=== PATIENT | female | born 1960 | race Caucasian/White ===

== ENCOUNTER 2025-05-05 09:37 | Inpatient (IN) | payer BC ==
[2025-05-05] MEDS ORDERED: Iopamidol 370 76% 100 ML VIAL ONE (10:06)
[2025-05-05 10:38] LABS: #Basophils 0.04 10x3/uL (0.0-0.2); #Eosinophils 0.08 10x3/uL (0.0-0.5); #Monocytes 0.51 10x3/uL (0.0-1.1); #Neutrophils 19.48 10x3/uL (1.5-8.4); %Basophils 0.2 % (0.0-2.0); %Eosinophils 0.4 % (0.0-6.0); %Lymphocytes 3.4 % (18.0-47.0); %Monocytes 2.4 % (0.0-10.0); %Neutrophils 92.4 % (40.0-75.0); Hematocrit 38.7 % (34.9-44.5); Hemoglobin 13.0 g/dL (12.0-15.5); Mean Corpuscular Hemoglobin 31.0 pg (27.0-33.0); Mean Corpuscular Volume 92.1 fL (81.6-98.3); Platelet Count 343 10x3/uL (150-450); Red Blood Cell (RBC) Count 4.20 10x6/uL (3.90-5.03); White Blood Cell (WBC) Count 21.07 10x3/uL (3.5-10.5)
[2025-05-05 10:57] LABS: ALT (SGPT) 17 U/L (Less than 34); AST (SGOT) 33 U/L (11-34); Albumin 2.6 g/dL (3.1-4.5); Alkaline Phosphatase 105 U/L (40-110); Anion Gap 14 mmol/L (10-20); BUN (Urea Nitrogen) 18 mg/dL (9.8-20.1); Bilirubin, Total 0.3 mg/dL (0.3-1.2); Calc. Creatinine Clearance 0 mL/min (70-130); Calcium 8.4 mg/dL (7.8-10.44); Carbon Dioxide 22 mmol/L (23-31); Chloride 94 mmol/L (98-107); Globulin 3.5 g/dL (2.4-3.5); Glucose 160 mg/dL (80-115); Lipase 7 U/L (8-78); Magnesium 1.7 mg/dL (1.6-2.6); Potassium 4.1 mmol/L (3.5-5.1); Sodium 126 mmol/L (136-145)
[2025-05-05] MEDS ORDERED: Ondansetron PF 4 MG/2 ML Vial ONE ×2 (11:18→13:23)
[2025-05-05 11:26] LABS: Critical Call Chem Troponin I SJOS.OD@1118; Troponin I 0.456 ng/mL (< 0.028)
[2025-05-05] MEDS ORDERED: Aspirin Chewable 81 MG TAB ONE (12:31)
[2025-05-05 13:03] LABS: Troponin I 0.460 ng/mL (< 0.028)
[2025-05-05] MEDS ORDERED: Benzonatate 100 MG CAP ONE (13:52)
[2025-05-05] MEDS ORDERED: Ondansetron PF 4 MG/2 ML Vial IVP PRN (14:33)
[2025-05-05] MEDS: Vancomycin 2.5 GM, Admixture Fee 1 EACH in Sodium Chloride 0.9% 500 ML IVPB SCH (15:30)
[2025-05-05 16:12] LABS: ALV-art Gradient 198.675 mmHg (0-20); Actual Bicarbonate (HCO3a) 21.8 mEq/L (22-28); Analyzer IN Cardio CS ER; Base Excess (BEa) -4.2 mEq/L (-2.0 to +3.0); CO2 Tension 42.9 mmHg (35.0-45.0); Calcium, Ionized (arterial) 1.13 mmol/L (1.12-1.30); Critical Notified By: clumpkins rt; Hematocrit-ABG 43 % (36.0-47.0); Hemoglobin (Hb) 14.5 g/dL (12.0-16.0); O2 Tension (PaO2), arterial 32.9 mmHg (> 80.0); Potassium - ABG Lab 4.09 mmol/L (3.70-5.30); Puncture Site Left Radial artery; pH, Arterial 7.323 (7.35-7.45)
[2025-05-05] MEDS: NOREPINEPHRINE 8 MG/250 ML-D5W 250 ML ONE (17:40)
[2025-05-05] MEDS: Fentanyl BOLUS 250 ML IVPB PRN (18:10)
[2025-05-05] MEDS ORDERED: DISCONTINUE PREVIOUS NARCOTIC PAIN MEDICATIONS AND BENZODIAZEPINES FS SCH (18:30)
[2025-05-05] MEDS ORDERED: Propofol BOLUS 1,000 MG/100 ML VIAL IV PRN (18:30)
[2025-05-05] MEDS ORDERED: FENTANYL 2,000MCG/100-0.9%NACL 100 ML IVPB SCH (18:30)
[2025-05-05 19:38] LABS: ALV-art Gradient 571.425 mmHg (0-20); Actual Bicarbonate (HCO3a) 17.9 mEq/L (22-28); Analyzer IN Cardio CS ICU; Base Excess (BEa) -7.9 mEq/L (-2.0 to +3.0); CO2 Tension 37.5 mmHg (35.0-45.0); Calcium, Ionized (arterial) 1.12 mmol/L (1.12-1.30); Critical Notified By: CP.LH1; Critical Notified Whom: RYAN, RN; Hematocrit-ABG 37 % (36.0-47.0); Hemoglobin (Hb) 12.6 g/dL (12.0-16.0); O2 Tension (PaO2), arterial 94.7 mmHg (> 80.0); Potassium - ABG Lab 4.22 mmol/L (3.70-5.30); Puncture Site Left Radial artery; RapidComm Collect By CP.LH1; pH, Arterial 7.297 (7.35-7.45)
[2025-05-05] MEDS: Enoxaparin 40 MG (0.4 mL) SYRINGE SC SCH (19:56)
[2025-05-05] MEDS: Topiramate 100 MG TAB PER TUBE SCH (19:57)
[2025-05-05 20:10] LABS: Troponin I 0.374 ng/mL (< 0.028)
[2025-05-05] MEDS ORDERED: AZELASTINE INH SCH (21:00)
[2025-05-05] MEDS ORDERED: FLUTICASONE INH SCH (21:00)
[2025-05-05] MEDS ORDERED: [UNRECOGNIZED DRUG - OTHER] INH SCH (21:00)
[2025-05-05] MEDS: VANCOMYCIN 1.25 GM/250 ML BAG 1.25 GM in Premix 1 BAG IVPB SCH (23:01)
[2025-05-06] MEDS: Pantoprazole 40 MG VIAL IVP SCH (08:53)
[2025-05-06 10:54] LABS: #Basophils 0.04 10x3/uL (0.0-0.2); #Eosinophils 0.60 10x3/uL (0.0-0.5); #Monocytes 0.55 10x3/uL (0.0-1.1); #Neutrophils 19.61 10x3/uL (1.5-8.4); %Basophils 0.2 % (0.0-2.0); %Eosinophils 2.7 % (0.0-6.0); %Lymphocytes 6.7 % (18.0-47.0); %Monocytes 2.5 % (0.0-10.0); %Neutrophils 87.3 % (40.0-75.0); Hematocrit 37.0 % (34.9-44.5); Hemoglobin 11.7 g/dL (12.0-15.5); Mean Corpuscular Hemoglobin 30.7 pg (27.0-33.0); Mean Corpuscular Volume 97.1 fL (81.6-98.3); Platelet Count 380 10x3/uL (150-450); Red Blood Cell (RBC) Count 3.81 10x6/uL (3.90-5.03); White Blood Cell (WBC) Count 22.44 10x3/uL (3.5-10.5)
[2025-05-06 11:02] LABS: Vancomycin, Random 36.4 ug/mL (See Comment)
[2025-05-06 11:05] LABS: ALT (SGPT) 13 U/L (Less than 34); AST (SGOT) 38 U/L (11-34); Albumin 2.4 g/dL (3.1-4.5); Alkaline Phosphatase 102 U/L (40-110); Anion Gap 11 mmol/L (10-20); BUN (Urea Nitrogen) 21 mg/dL (9.8-20.1); BUN/Creatinine Ratio 20.19; Bilirubin, Total 0.3 mg/dL (0.3-1.2); Calc. Creatinine Clearance 128 mL/min (70-130); Calcium 8.5 mg/dL (7.8-10.44); Carbon Dioxide 21 mmol/L (23-31); Chloride 99 mmol/L (98-107); Globulin 3.7 g/dL (2.4-3.5); Glucose 146 mg/dL (80-115); Potassium 4.2 mmol/L (3.5-5.1); Sodium 127 mmol/L (136-145)
[2025-05-06 11:21] LABS: ALV-art Gradient 581.600 mmHg (0-20); Actual Bicarbonate (HCO3a) 19.0 mEq/L (22-28); Analyzer IN Cardio CS ICU; Base Excess (BEa) -6.6 mEq/L (-2.0 to +3.0); CO2 Tension 38.0 mmHg (35.0-45.0); Calcium, Ionized (arterial) 1.16 mmol/L (1.12-1.30); Hematocrit-ABG 37 % (36.0-47.0); Hemoglobin (Hb) 12.6 g/dL (12.0-16.0); O2 Tension (PaO2), arterial 83.9 mmHg (> 80.0); Potassium - ABG Lab 4.07 mmol/L (3.70-5.30); Puncture Site Left Radial artery; RapidComm Collect By clumpkins rt; pH, Arterial 7.316 (7.35-7.45)
[2025-05-06] MEDS: NOREPINEPHRINE 8 MG/250 ML-D5W 250 ML IVPB SCH (21:22)
[2025-05-06] MEDS: Vancomycin HCl 750 MG in Sodium Chloride 0.9% 250 ML 250 ML IVPB SCH (23:12)
[2025-05-07 03:20] LABS: #Basophils 0.04 10x3/uL (0.0-0.2); #Eosinophils 1.49 10x3/uL (0.0-0.5); #Monocytes 0.44 10x3/uL (0.0-1.1); #Neutrophils 13.03 10x3/uL (1.5-8.4); %Basophils 0.2 % (0.0-2.0); %Eosinophils 9.1 % (0.0-6.0); %Lymphocytes 7.3 % (18.0-47.0); %Monocytes 2.7 % (0.0-10.0); %Neutrophils 80.1 % (40.0-75.0); Hematocrit 33.2 % (34.9-44.5); Hemoglobin 11.0 g/dL (12.0-15.5); Mean Corpuscular Hemoglobin 31.1 pg (27.0-33.0); Mean Corpuscular Volume 93.8 fL (81.6-98.3); Platelet Count 278 10x3/uL (150-450); Red Blood Cell (RBC) Count 3.54 10x6/uL (3.90-5.03); White Blood Cell (WBC) Count 16.29 10x3/uL (3.5-10.5)
[2025-05-07 03:46] LABS: Vancomycin, Random 24.3 ug/mL (See Comment)
[2025-05-07 03:47] LABS: Anion Gap 11 mmol/L (10-20); BUN (Urea Nitrogen) 25 mg/dL (9.8-20.1); Calc. Creatinine Clearance 120 mL/min (70-130); Calcium 8.6 mg/dL (7.8-10.44); Carbon Dioxide 19 mmol/L (23-31); Chloride 103 mmol/L (98-107); Glucose 137 mg/dL (80-115); Potassium 3.9 mmol/L (3.5-5.1); Sodium 129 mmol/L (136-145)
[2025-05-07] MEDS: FLU (Fluad Triv) 25-26 (65UP)PF 45 MCG/0.5 ML Syringe IM ONE (07:51)
[2025-05-07] MEDS: Furosemide 40 MG (4 mL) VIAL SLOW IVP SCH (15:01)
[2025-05-07] MEDS: VANCOMYCIN 1.25 GM/250 ML BAG 1.25 GM in Premix 1 BAG IVPB SCH (19:49)
[2025-05-08 03:41] LABS: ALV-art Gradient 266.925 mmHg (0-20); Actual Bicarbonate (HCO3a) 20.5 mEq/L (22-28); Analyzer IN Cardio CS ICU; Base Excess (BEa) -6.6 mEq/L (-2.0 to +3.0); CO2 Tension 47.3 mmHg (35.0-45.0); Calcium, Ionized (arterial) 1.22 mmol/L (1.12-1.30); Hematocrit-ABG 33 % (36.0-47.0); Hemoglobin (Hb) 11.3 g/dL (12.0-16.0); O2 Tension (PaO2), arterial 66.1 mmHg (> 80.0); Potassium - ABG Lab 3.37 mmol/L (3.70-5.30); Puncture Site Left Radial artery; pH, Arterial 7.254 (7.35-7.45)
[2025-05-08 04:23] LABS: Anion Gap 11 mmol/L (10-20); BUN (Urea Nitrogen) 29 mg/dL (9.8-20.1); Calc. Creatinine Clearance 106 mL/min (70-130); Calcium 8.8 mg/dL (7.8-10.44); Carbon Dioxide 21 mmol/L (23-31); Chloride 104 mmol/L (98-107); Glucose 143 mg/dL (80-115); Potassium 3.4 mmol/L (3.5-5.1); Sodium 133 mmol/L (136-145)
[2025-05-08 04:24] LABS: Vancomycin, Random 22.3 ug/mL (See Comment)
[2025-05-08 04:25] LABS: #Basophils 0.03 10x3/uL (0.0-0.2); #Eosinophils 1.49 10x3/uL (0.0-0.5); #Monocytes 0.34 10x3/uL (0.0-1.1); #Neutrophils 10.57 10x3/uL (1.5-8.4); %Basophils 0.2 % (0.0-2.0); %Eosinophils 10.6 % (0.0-6.0); %Lymphocytes 10.3 % (18.0-47.0); %Monocytes 2.4 % (0.0-10.0); %Neutrophils 75.4 % (40.0-75.0); Hematocrit 31.1 % (34.9-44.5); Hemoglobin 10.1 g/dL (12.0-15.5); Mean Corpuscular Hemoglobin 31.3 pg (27.0-33.0); Mean Corpuscular Volume 96.3 fL (81.6-98.3); Platelet Count 285 10x3/uL (150-450); Red Blood Cell (RBC) Count 3.23 10x6/uL (3.90-5.03); White Blood Cell (WBC) Count 14.04 10x3/uL (3.5-10.5)
[2025-05-08] MEDS ORDERED: Electrolyte Replacement Protocol 1 EACH FS PRN (15:30)
[2025-05-08] MEDS: Nystatin Powder 15 GM BOT TOP PRN (15:51)
[2025-05-08] MEDS: Magnesium 2 GM/50 ML(in water) 2 GM in Premix 1 BAG IVPB SCH (16:26)
[2025-05-08] MEDS: Potassium Chloride 20 MEQ in Premix 1 BAG IVPB SCH (16:28)
[2025-05-08] MEDS: Mupirocin 1 GM TUBE TP SCH (20:30)
[2025-05-09 03:55] LABS: ALV-art Gradient 219.175 mmHg (0-20); Actual Bicarbonate (HCO3a) 20.4 mEq/L (22-28); Analyzer IN Cardio CS ICU; Base Excess (BEa) -6.7 mEq/L (-2.0 to +3.0); CO2 Tension 47.7 mmHg (35.0-45.0); Calcium, Ionized (arterial) 1.25 mmol/L (1.12-1.30); Hematocrit-ABG 33 % (36.0-47.0); Hemoglobin (Hb) 11.1 g/dL (12.0-16.0); O2 Tension (PaO2), arterial 77.7 mmHg (> 80.0); Potassium - ABG Lab 3.93 mmol/L (3.70-5.30); Puncture Site Left Radial artery; pH, Arterial 7.249 (7.35-7.45)
[2025-05-09 05:44] LABS: #Basophils 0.03 10x3/uL (0.0-0.2); #Eosinophils 1.34 10x3/uL (0.0-0.5); #Monocytes 0.37 10x3/uL (0.0-1.1); #Neutrophils 11.58 10x3/uL (1.5-8.4); %Basophils 0.2 % (0.0-2.0); %Eosinophils 9.3 % (0.0-6.0); %Lymphocytes 6.6 % (18.0-47.0); %Monocytes 2.6 % (0.0-10.0); %Neutrophils 80.3 % (40.0-75.0); Hematocrit 31.7 % (34.9-44.5); Hemoglobin 9.9 g/dL (12.0-15.5); Mean Corpuscular Hemoglobin 30.7 pg (27.0-33.0); Mean Corpuscular Volume 98.1 fL (81.6-98.3); Platelet Count 279 10x3/uL (150-450); Red Blood Cell (RBC) Count 3.23 10x6/uL (3.90-5.03); White Blood Cell (WBC) Count 14.42 10x3/uL (3.5-10.5)
[2025-05-09 06:13] LABS: Vancomycin, Random 30.7 ug/mL (See Comment)
[2025-05-09 06:16] LABS: Anion Gap 14 mmol/L (10-20); BUN (Urea Nitrogen) 34 mg/dL (9.8-20.1); Calc. Creatinine Clearance 93 mL/min (70-130); Calcium 8.0 mg/dL (7.8-10.44); Carbon Dioxide 20 mmol/L (23-31); Chloride 106 mmol/L (98-107); Glucose 156 mg/dL (80-115); Magnesium 2.1 mg/dL (1.6-2.6); Potassium 4.0 mmol/L (3.5-5.1); Sodium 136 mmol/L (136-145)
[2025-05-09 07:15] LABS: Actual Bicarbonate (HCO3a) 19.4 mEq/L (22-28); Analyzer IN Cardio CS ICU; Base Excess (BEa) -8.7 mEq/L (-2.0 to +3.0); CO2 Tension 51.6 mmHg (35.0-45.0); Calcium, Ionized (arterial) 1.26 mmol/L (1.12-1.30); Critical Notified Whom: pateri; Hematocrit-ABG 34 % (36.0-47.0); Hemoglobin (Hb) 11.7 g/dL (12.0-16.0); O2 Tension (PaO2), arterial 202.2 mmHg (> 80.0); Potassium - ABG Lab 3.93 mmol/L (3.70-5.30); Puncture Site Left Radial artery; pH, Arterial 7.194 (7.35-7.45)
[2025-05-09 07:18] LABS: ALV-art Gradient 446.300 mmHg (0-20)
[2025-05-09] MEDS ORDERED: Rocuronium Bromide 10 MG/ML (10ML VIAL) ONE (08:00)
[2025-05-09 08:10] LABS: ALV-art Gradient 297.850 mmHg (0-20); Actual Bicarbonate (HCO3a) 19.3 mEq/L (22-28); Analyzer IN Cardio CS ICU; Base Excess (BEa) -6.4 mEq/L (-2.0 to +3.0); CO2 Tension 39.4 mmHg (35.0-45.0); Calcium, Ionized (arterial) 1.21 mmol/L (1.12-1.30); Hematocrit-ABG 34 % (36.0-47.0); Hemoglobin (Hb) 11.5 g/dL (12.0-16.0); O2 Tension (PaO2), arterial 80.7 mmHg (> 80.0); Potassium - ABG Lab 3.81 mmol/L (3.70-5.30); Puncture Site Left Radial artery; pH, Arterial 7.309 (7.35-7.45)
[2025-05-09] MEDS: Furosemide 40 MG (4 mL) VIAL SLOW IVP SCH (09:37)
[2025-05-09] MEDS ORDERED: NACL IVPB SCH ×2 (11:45→19:45)
[2025-05-09] MEDS ORDERED: DEXMEDETOMIDINE IVPB SCH ×2 (11:45→19:45)
[2025-05-09] MEDS: Vancomycin 1 GM in Sodium Chloride 0.9% 250 ML 250 ML IVPB SCH (20:31)
[2025-05-10 04:14] LABS: #Basophils 0.04 10x3/uL (0.0-0.2); #Eosinophils 2.30 10x3/uL (0.0-0.5); #Monocytes 0.57 10x3/uL (0.0-1.1); #Neutrophils 11.74 10x3/uL (1.5-8.4); %Basophils 0.2 % (0.0-2.0); %Eosinophils 14.3 % (0.0-6.0); %Lymphocytes 7.9 % (18.0-47.0); %Monocytes 3.5 % (0.0-10.0); %Neutrophils 72.9 % (40.0-75.0); Hematocrit 31.8 % (34.9-44.5); Hemoglobin 10.1 g/dL (12.0-15.5); Mean Corpuscular Hemoglobin 31.1 pg (27.0-33.0); Mean Corpuscular Volume 97.8 fL (81.6-98.3); Platelet Count 290 10x3/uL (150-450); Red Blood Cell (RBC) Count 3.25 10x6/uL (3.90-5.03); White Blood Cell (WBC) Count 16.13 10x3/uL (3.5-10.5)
[2025-05-10 04:23] LABS: Anion Gap 14 mmol/L (10-20); BUN (Urea Nitrogen) 41 mg/dL (9.8-20.1); Calc. Creatinine Clearance 66 mL/min (70-130); Calcium 9.0 mg/dL (7.8-10.44); Carbon Dioxide 21 mmol/L (23-31); Chloride 107 mmol/L (98-107); Glucose 142 mg/dL (80-115); Potassium 4.1 mmol/L (3.5-5.1); Sodium 138 mmol/L (136-145)
[2025-05-10 05:52] LABS: ALV-art Gradient 223.625 mmHg (0-20); Actual Bicarbonate (HCO3a) 20.6 mEq/L (22-28); Analyzer IN Cardio CS ICU; Base Excess (BEa) -6.8 mEq/L (-2.0 to +3.0); CO2 Tension 49.5 mmHg (35.0-45.0); Calcium, Ionized (arterial) 1.27 mmol/L (1.12-1.30); Hematocrit-ABG 33 % (36.0-47.0); Hemoglobin (Hb) 11.2 g/dL (12.0-16.0); O2 Tension (PaO2), arterial 71.0 mmHg (> 80.0); Potassium - ABG Lab 3.95 mmol/L (3.70-5.30); Puncture Site Right Radial artery; RapidComm Collect By cp.sdg; pH, Arterial 7.237 (7.35-7.45)
[2025-05-10] MEDS: Metoclopramide HCl 10 MG (2 mL) VIAL IVP SCH (08:43)
[2025-05-10] MEDS: Albumin 25% 25 GM (100 mL) BOT IVPB SCH (08:43)
[2025-05-11 05:16] VITALS: BMI 51.1
[2025-05-11 07:14] LABS: ALV-art Gradient 240.225 mmHg (0-20); Actual Bicarbonate (HCO3a) 18.0 mEq/L (22-28); Analyzer IN Cardio CS ICU; Base Excess (BEa) -8.9 mEq/L (-2.0 to +3.0); CO2 Tension 43.1 mmHg (35.0-45.0); Calcium, Ionized (arterial) 1.28 mmol/L (1.12-1.30); Critical Notified By: CP.PH; Critical Notified Whom: RN-Pam; Hematocrit-ABG 29 % (36.0-47.0); Hemoglobin (Hb) 9.8 g/dL (12.0-16.0); O2 Tension (PaO2), arterial 62.4 mmHg (> 80.0); Potassium - ABG Lab 4.39 mmol/L (3.70-5.30); Puncture Site Right Radial artery; RapidComm Collect By CP.PH; pH, Arterial 7.239 (7.35-7.45)
[2025-05-11 07:43] LABS: #Basophils 0.03 10x3/uL (0.0-0.2); #Eosinophils 0.04 10x3/uL (0.0-0.5); #Monocytes 0.58 10x3/uL (0.0-1.1); #Neutrophils 12.51 10x3/uL (1.5-8.4); %Basophils 0.2 % (0.0-2.0); %Eosinophils 0.3 % (0.0-6.0); %Lymphocytes 8.5 % (18.0-47.0); %Monocytes 3.9 % (0.0-10.0); %Neutrophils 84.1 % (40.0-75.0); Hematocrit 29.6 % (34.9-44.5); Hemoglobin 9.3 g/dL (12.0-15.5); Mean Corpuscular Hemoglobin 30.9 pg (27.0-33.0); Mean Corpuscular Volume 98.3 fL (81.6-98.3); Platelet Count 264 10x3/uL (150-450); Red Blood Cell (RBC) Count 3.01 10x6/uL (3.90-5.03); White Blood Cell (WBC) Count 14.87 10x3/uL (3.5-10.5)
[2025-05-11 07:52] LABS: Anion Gap 17 mmol/L (10-20); BUN (Urea Nitrogen) 59 mg/dL (9.8-20.1); Calc. Creatinine Clearance 49 mL/min (70-130); Calcium 9.2 mg/dL (7.8-10.44); Carbon Dioxide 18 mmol/L (23-31); Chloride 108 mmol/L (98-107); Glucose 163 mg/dL (80-115); Potassium 4.7 mmol/L (3.5-5.1); Sodium 138 mmol/L (136-145)
[2025-05-11] MEDS: Lactulose 20 GM (30 mL) UDCUP PER TUBE SCH (10:21)
[2025-05-11] MEDS: Metoclopramide HCl 10 MG (2 mL) VIAL IVP SCH (10:26)
[2025-05-11] MEDS: Sodium Bicarbonate 150 MEQ, Admixture Fee 1 EACH in Sterile Water 1,000 ML IV SCH (12:13)
[2025-05-11 12:42] VITALS: BMI 51.1
[2025-05-11 15:10] VITALS: BP 125/63
[2025-05-11 15:48] VITALS: TEMP 98.2
[2025-05-11] MEDS ORDERED: Enoxaparin 40 MG (0.4 mL) SYRINGE SC SCH (21:00)
== END 2025-05-11 16:30 | disposition home or self-care (01) | DRG 870 ==
LOC: CSHERS 09:37 → CSHICU 14:18
PROVIDERS: ADMIT Student in an Organized Health Care Education/Training Program; ATTEND Hospitalist
PROC: 3E03329 Introduction of Other Anti-infective into Peripheral Vein, Percutaneous Approach (ICD-10-PCS; principal; 2025-05-05)
PROC: 5A1955Z Respiratory Ventilation, Greater than 96 Consecutive Hours (ICD-10-PCS; 2025-05-05)
PROC: 3E033XZ Introduction of Vasopressor into Peripheral Vein, Percutaneous Approach (ICD-10-PCS; 2025-05-05)
PROC: 4A133R1 Monitoring of Arterial Saturation, Peripheral, Percutaneous Approach (ICD-10-PCS; 2025-05-05)
PROC: 0BH17EZ Insertion of Endotracheal Airway into Trachea, Via Natural or Artificial Opening (ICD-10-PCS; 2025-05-05)
PROC: 3E0234Z Introduction of Serum, Toxoid and Vaccine into Muscle, Percutaneous Approach (ICD-10-PCS; 2025-05-06)
PROC: 30233J1 Transfusion of Nonautologous Serum Albumin into Peripheral Vein, Percutaneous Approach (ICD-10-PCS; 2025-05-10)
DX: A41.9 Sepsis, unspecified organism (principal); J18.9 Pneumonia, unspecified organism; J96.01 Acute respiratory failure with hypoxia; R65.21 Severe sepsis with septic shock; E87.1 Hypo-osmolality and hyponatremia; E87.20 Acidosis, unspecified; Z68.43 Body mass index [BMI] 50.0-59.9, adult; E66.2 Morbid (severe) obesity with alveolar hypoventilation; N17.9 Acute kidney failure, unspecified; D62 Acute posthemorrhagic anemia; K56.7 Ileus, unspecified; I5A Non-ischemic myocardial injury (non-traumatic); M54.9 Dorsalgia, unspecified; E03.9 Hypothyroidism, unspecified; F32.A Depression, unspecified; F41.9 Anxiety disorder, unspecified; R32 Unspecified urinary incontinence; Z88.8 Allergy status to other drugs, medicaments and biological substances; Z79.899 Other long term (current) drug therapy; Z79.890 Hormone replacement therapy; Z98.890 Other specified postprocedural states; Z98.891 History of uterine scar from previous surgery; Z90.710 Acquired absence of both cervix and uterus; Z90.49 Acquired absence of other specified parts of digestive tract
CPT/HCPCS: 36415; 36600; 70450; 71045; 71275; 72125; 74177; 80048; 80053; 80069; 80202; 82805; 83036; 83605; 83690; 83735; 83880; 84484; 85025; 87040; 87428; 87633; 93005; 93306; 94002; 94003; 94640; 94660; 94760; 94762; 96365; 96366; 96375; 96376; 97139; 99292; A4217; J1650; J1940; J2060; J2405; J2470; J2543; J2765; J2919; J3010; J3373; J3475; J3480; J7030; J7050; P9047; Q9967